=== PATIENT | male | born 1985 | race Caucasian/White ===

== ENCOUNTER 2024-05-03 09:05 | Emergency (ER) | payer SELFPAY ==
[2024-05-03] MEDS ORDERED: Bacitracin 1 PK ONE (09:19)
[2024-05-03] MEDS ORDERED: Lidocaine 1% (PF) 30 ML VIAL ONE (09:20)
[2024-05-03] MEDS ORDERED: Boostrix 0.5 ML (Tdap) VIAL (>/=7 yrs of age) ONE (10:16)
== END 2024-05-03 10:30 | disposition home or self-care (01) ==
LOC: BURERS 09:05
DX: S61.213A Laceration without foreign body of left middle finger without damage to nail, initial encounter (principal); S60.411A Abrasion of left index finger, initial encounter; R03.0 Elevated blood-pressure reading, without diagnosis of hypertension; F17.210 Nicotine dependence, cigarettes, uncomplicated; W31.1XXA Contact with metalworking machines, initial encounter; Z23 Encounter for immunization
CPT/HCPCS: 12031; 90471; 90715; J2001